=== PATIENT | female | born 1955 | race African-American/Black ===

== ENCOUNTER → 2017-02-09 | Outpatient (CLI) | payer OTHER ==
[~2017-02-09] MED LIST: COZAAR PO; LIPITOR PO; METFORMIN PO; PANTOPRAZOLE SO40 MG PO
--- NOTE | ~2017-02-09 | CT2 ---
[facility] A Service [facility] RADIOLOGY TEXT RESULTS PATIENT: JUAN PABLO PALUMBO LOCATION: SG : 53 UNIT #: [id number] AGE: [address]: Shereen Hester MD SEX: F ORDER DR: [id number] [address] [address] [id number] P MR#: [id number] Acc #: [id number] NAME: JUAN PABLO PALUMBO : 1955 SEX: F STUDY DATE/TIME: 02/09/2017 10:26 UNIT: SGUS ROOM: STUDY DESCRIPTION: CT Abd and Pelv W Cont Attending Physician: Shereen Hester M.D. Ordering Physician: Shereen Hester M.D. Primary Care Physician: Shereen Hester M.D. MEDICAL IMAGING REPORT This report is preliminary unless electronic signature is present. EXAM CT abdomen and pelvis with contrast INDICATIONS Epigastric region abdominal pain for the past 2 weeks. PROCEDURE Contrast-enhanced CT of the abdomen and pelvis, 100 mL of Isovue-370. COMPARISON None. This CT exam was performed with one or more of the following radiation dose reduction techniques: automatic exposure control, adjustment of mA and/or kV according to patient size, and iterative reconstruction. FINDINGS Abdomen with contrast: Included lung bases are clear. Liver measures 17.5 cm in length. Low-attenuation of the liver compared with the spleen. Spleen, kidneys, adrenal glands, pancreas unremarkable. There are a few stones in the gallbladder. No evidence for active inflammation by CT. Small hiatal hernia. Bowel loops nondilated. The appendix is normal. Pelvis with contrast: Previous hysterectomy. No pelvic mass or fluid. No aggressive appearing bone lesion. IMPRESSION 1. No acute findings. 2. Low-attenuation of the liver compared with the spleen nonspecific on contrast-enhanced CT, but suspicious for steatosis. 3. Uncomplicated cholelithiasis. [facility] A Service [facility] RADIOLOGY TEXT RESULTS PATIENT: JUAN PABLO PALUMBO LOCATION: [facility] : 53 UNIT #: [id number] AGE: [address]: Shereen Hester MD SEX: F ORDER DR: Dictated by... Prudencio Maldonado M.D. THIS IS AN ELECTRONICALLY VERIFIED REPORT Prudencio Maldonado M.D. at 02/12/2017 7:42 AM MICHELL/anton TD: 02/09/2017 13:44 JOB #: [id number] MEDICAL IMAGING REPORT Page 1 of 1
--- NOTE | ~2017-02-09 | US6 ---
[facility] A Service [facility] RADIOLOGY TEXT RESULTS PATIENT: JUAN PABLO PALUMBO LOCATION: SGUS : 53 UNIT #: [id number] AGE: [address]: Shereen Hester MD SEX: F ORDER DR: [id number] [place] [id number] P MR#: [id number] Acc #: [id number] NAME: JUAN PABLO PALUMBO : 1955 SEX: F STUDY DATE/TIME: 02/09/2017 8:40 UNIT: SGUS ROOM: STUDY DESCRIPTION: US Abdominal Limited Attending Physician: Shereen Hester M.D. Ordering Physician: Shereen Hester M.D. Primary Care Physician: Shereen Hester M.D. MEDICAL IMAGING REPORT This report is preliminary unless electronic signature is present. EXAM Right upper quadrant abdominal ultrasound INDICATION Acute pancreatitis. Midline abdominal pain for the past 2 weeks. PROCEDURE Kaufman-scale and Doppler imaging right upper quadrant of the abdomen. COMPARISON None. FINDINGS Visualized portions of the pancreas are unremarkable. Liver shows diffusely increased echotexture. No liver lesion is seen on submitted images. There are a few stones in the gallbladder. No wall thickening or pericholecystic fluid. Common duct measures 3 mm. Right kidney measures 9.8 cm and is normal. IMPRESSION 1. Uncomplicated cholelithiasis. 2. Hepatic steatosis. 3. Pancreas shows no definite abnormality by ultrasound but would be better evaluated with CT. Dictated by... Prudencio Maldonado M.D. THIS IS AN ELECTRONICALLY VERIFIED REPORT Prudencio Maldonado M.D. at 02/12/2017 7:43 AM EED/aa [facility] A Service [facility] RADIOLOGY TEXT RESULTS PATIENT: JUAN PABLO PALUMBO LOCATION: SGUS : 53 UNIT #: [id number] AGE: [address]: Shereen Hester MD SEX: F ORDER DR: TD: 02/09/2017 12:44 JOB #: [id number] MEDICAL IMAGING REPORT Page 1 of 1
[2017-02-09 09:10] LABS: POC - CREATININE 0.87 mg/dL (0.44-1.03); POC - GFR >60.0 mL/min (>60)
== END | disposition home or self-care (01) ==
LOC: SGUS 08:26
PROVIDERS: Internal Medicine
DX: K85.90 Acute pancreatitis without necrosis or infection, unspecified (principal); R93.2 Abnormal findings on diagnostic imaging of liver and biliary tract; K80.20 Calculus of gallbladder without cholecystitis without obstruction; K76.0 Fatty (change of) liver, not elsewhere classified
CPT/HCPCS: 74177; 76705; 82565; Q9967

== ENCOUNTER 2017-03-28 10:56 | Emergency (ER) | payer OTHER ==
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
--- NOTE | ~2017-03-28 | EKG ---
PATIENT: JUAN PABLO PALUMBO UNIT #: [id number] Ventricular Rate: 63 BPM Atrial Rate: 63 BPM P-R Interval: 180 ms QRS Duration: 86 ms Q-T Interval: 414 ms QTC Calculation(Bezet): 423 ms P [place]: 16 degrees Calculated R [place]: -12 degrees Calculated T [place]: 27 degrees Diagnosis Line: Normal sinus rhythm Diagnosis Line: Cannot rule out Anterior infarct , age Diagnosis Line: undetermined Diagnosis Line: Abnormal ECG Diagnosis Line: No previous ECGs available Diagnosis Line: Confirmed by MYLENE MCKEE MD ([id number]) on Diagnosis Line: 03/29/2017 4:46:52 PM INTERPRETING MD: RYLEE OLIVEIRA
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
[2017-03-28] MEDS ORDERED: COZAAR PO (11:07)
[2017-03-28] MEDS ORDERED: METFORMIN PO (11:07)
[2017-03-28] MEDS ORDERED: LIPITOR PO (11:07)
[2017-03-28 11:41] LABS: BASOPHIL% 0.4 % (0-2.5); EOSINOPHIL# 0.2 X10e3 (0-0.7); EOSINOPHIL% 4.3 % (0.0-7.0); HEMATOCRIT 39.6 % (35.0-45.0); LYMPHOCYTE# 2.3 X10e3 (1.0-3.5); LYMPHOCYTE% 44.1 % (17.0-45.0); MEAN CELL VOLUME 91.5 FL (83-96); MEAN CORPUSCULAR HEMOGLOBIN 30.2 PG (28-34); MEAN PLATELET VOLUME 8.1 FL (6.5-11.5); MONOCYTE# 0.3 X10e3 (0-1.0); MONOCYTE% 6.1 % (3.0-12.0); NEUTROPHIL# 2.4 X10e3 (1.5-7.1); NEUTROPHIL% 45.1 % (40-75); PLATELET COUNT 226 X10e3 (140-420); RED BLOOD COUNT 4.32 X10e (3.90-5.30); WHITE BLOOD COUNT 5.2 X10e3 (4.0-10.5)
[2017-03-28 11:45] LABS: DIFF IND NO
[2017-03-28 11:59] LABS: POC - CKMB <1.0 ng/mL (0.0-7.9); POC - TROPONIN <0.05 ng/mL (<=0.05)
[2017-03-28 12:00] LABS: ALBUMIN SERUM 4.3 g/dL (3.5-5.0); BILIRUBIN, DIRECT 0.1 mg/dL (0.0-0.2); BILIRUBIN,INDIRECT 0.4 mg/dL (0.0-0.9); BILIRUBIN,TOTAL 0.5 mg/dL (0.2-2.0); BUN/CREATININE RATIO 12.5; CALCIUM SERUM 9.4 mg/dL (8.4-10.2); CREATININE SERUM 0.8 mg/dL (0.6-1.4); POTASSIUM 3.8 mmol/L (3.5-5.1); PROTEIN TOTAL SERUM 7.8 g/dL (6.0-8.3)
[2017-04-02] MEDS ORDERED: PANTOPRAZOLE SO40 MG PO (10:55)
== END 2017-03-28 13:32 | disposition home or self-care (01) ==
LOC: SED 10:56
PROVIDERS: Emergency Medicine
DX: R07.9 Chest pain, unspecified (principal); R51 Headache; M54.6 Pain in thoracic spine; I10 Essential (primary) hypertension; E11.9 Type 2 diabetes mellitus without complications; V43.52XA Car driver injured in collision with other type car in traffic accident, initial encounter
CPT/HCPCS: 36415; 70450; 71260; 72125; 80048; 80076; 82553; 84484; 85025; 93005; 99284; J1885; Q9967

== ENCOUNTER → 2017-04-09 | Day surgery (SDC) | payer OTHER ==
--- NOTE | ~2017-04-09 | OR ---
Unit #: [id number] #: [id number] Patient: JUAN PABLO PALUMBO [id number] [address] [place], [place] [address] [id number] O MR#: [id number] NAME: JUAN PABLO PALUMBO ROOM: Date of Procedure: 04/09/2017 Admission Date: 04/09/2017 Surgeon: Dariel Jimenez III, M.D. : 1955 Attending Physician: Dariel Jimenez III, M.D. Primary Care Physician: Shereen Hester M.D. OPERATIVE REPORT PREOPERATIVE DIAGNOSES Abdominal pain and reflux. POSTOPERATIVE DIAGNOSES Retained food in the stomach and hiatal hernia. PROCEDURES PERFORMED Esophagogastroduodenoscopy with biopsy. ANESTHESIA MAC. SPECIMENS Antrum was sent for CODY testing. COMPLICATIONS None apparent. INDICATIONS FOR PROCEDURE This is a 61-year-old lady who was referred to me for gallstones. She has fairly atypical symptoms and that she has fairly constant pain that is not aggravated by food intake. She also complains of reflux. She is here today for upper endoscopy. Additionally, she has a history of diabetes. DESCRIPTION OF PROCEDURE After consent was obtained, the patient was brought to the endoscopy suite, placed in the left lateral decubitus position. We titrated the above sedation, and I passed an EGD scope easily into the esophagus under direct visualization. She had normal peristalsis. No evidence of any erosions or esophagitis. She did have a hiatal hernia. The scope was advanced into the stomach, and there was a large amount of retained food. I am not sure if this is because she was not truly n.p.o. after midnight or if she has gastroparesis. I did not see any ulcers, but the exam was limited due to the presence of the food. Photos of that were obtained. I then advanced the scope through the pylorus. There were no abnormalities seen within the pylorus of the first and second portions of the duodenum. I then took a biopsy of the antrum for CODY testing. The scope was retroflexed within the cardia and again, the hiatal hernia was visualized. The scope was straightened and then carefully withdrawn. The patient tolerated the procedure without any problems. I will inquire about her n.p.o. status and certainly, if she was truly n.p.o., she may need to have a gastric emptying study. Unit #: [id number] #: [id number] Patient: JUAN PABLO PALUMBO Dictated by... Dariel Jimenez III, M.D. VCL/lokesh TD: 04/09/2017 07:34 JOB #: [id number] OPERATIVE REPORT Page 1 of 1 X Dariel Jimenez III, MD PROCEDURE OPERATIVE NOTE
== END | disposition home or self-care (01) ==
LOC: COPS 05:28
DX: K21.9 Gastro-esophageal reflux disease without esophagitis (principal); K44.9 Diaphragmatic hernia without obstruction or gangrene; K31.89 Other diseases of stomach and duodenum; E11.42 Type 2 diabetes mellitus with diabetic polyneuropathy; I10 Essential (primary) hypertension; M19.90 Unspecified osteoarthritis, unspecified site; G89.29 Other chronic pain; M54.5 Low back pain; E78.00 Pure hypercholesterolemia, unspecified; E78.5 Hyperlipidemia, unspecified; Z79.84 Long term (current) use of oral hypoglycemic drugs; Z79.899 Other long term (current) drug therapy; Z90.710 Acquired absence of both cervix and uterus; Z98.890 Other specified postprocedural states
CPT/HCPCS: 82947; 87077

== ENCOUNTER → 2017-05-10 | Outpatient (CLI) | payer OTHER ==
--- NOTE | ~2017-05-10 | CR172 ---
[facility] A Service of [facility] RADIOLOGY TEXT RESULTS PATIENT: JUAN PABLO PALUMBO LOCATION: [facility] : 53 UNIT #: [id number] AGE: [address]: Shereen Hester MD SEX: F ORDER DR: [id number] [facility] [address]. [place], [place] [address] [id number] O MR#: [id number] Acc #: [id number] NAME: JUAN PABLO PALUMBO : 1955 SEX: F STUDY DATE/TIME: 05/10/2017 9:08 UNIT: [facility] ROOM: STUDY DESCRIPTION: CR Knee 3 Views Lt Attending Physician: Shereen Hester M.D. Referring Physician: Shereen Hester M.D. Ordering Physician: Shereen Hester M.D. Primary Care Physician: Shereen Hester M.D. MEDICAL IMAGING REPORT This report is preliminary unless electronic signature is present EXAM Left knee 3 views 05/10/2017. HISTORY Osteoarthritis left knee. Left knee pain for 4 days with no known injury. FINDINGS 3 views of the left knee demonstrate no fracture. There is degenerative change with mild narrowing of the medial and lateral compartments of the knee, and small osteophytes extend off the tibial plateau and the posterior patella. There is no joint effusion. IMPRESSION Degenerative change left knee. No acute abnormality. Dictated by... Edmar Kaiser M.D. THIS IS AN ELECTRONICALLY VERIFIED REPORT Edmar Kaiser M.D. at 05/11/2017 10:18 AM MICHAEL/jessie TD: 05/10/2017 17:56 JOB #: [id number] MEDICAL IMAGING REPORT Page 1 of 1 COPY
--- NOTE | ~2017-05-10 | CR173 ---
[facility] A Service of [facility] RADIOLOGY TEXT RESULTS PATIENT: JUAN PABLO PALUMBO LOCATION: [facility] : 53 UNIT #: [id number] AGE: [address]: Shereen Hester MD SEX: F ORDER DR: [id number] [facility] [address] [facility]. [place], [place] [address] [id number] O MR#: [id number] Acc #: [id number] NAME: JUAN PABLO PALUMBO : 1955 SEX: F STUDY DATE/TIME: 05/10/2017 9:08 UNIT: [facility] ROOM: STUDY DESCRIPTION: CR Knee 3 Views Rt Attending Physician: Shereen Hester M.D. Referring Physician: Shereen Hester M.D. Ordering Physician: Shereen Hester M.D. Primary Care Physician: Shereen Hester M.D. MEDICAL IMAGING REPORT This report is preliminary unless electronic signature is present EXAM Right knee 3 views 05/10/2017 HISTORY Right knee pain for 4 days, osteoarthritis right knee. No known injury. FINDINGS 3 views of the right knee demonstrate no fracture. There is degenerative narrowing of the medial and lateral compartments of the knee. Small osteophytes extend off the femoral condyles and the tibial plateau. There is no joint effusion. IMPRESSION Degenerative change right knee. No acute abnormality. Dictated by... Edmar Kaiser M.D. THIS IS AN ELECTRONICALLY VERIFIED REPORT Edmar Kaiser M.D. at 05/11/2017 10:18 AM MICHAEL/jessie TD: 05/10/2017 18:17 JOB #: [id number] MEDICAL IMAGING REPORT Page 1 of 1 COPY
== END | disposition home or self-care (01) ==
LOC: CRAD 08:59
DX: M17.0 Bilateral primary osteoarthritis of knee (principal)
CPT/HCPCS: 73562